=== PATIENT | male | born 1950 ===

== ENCOUNTER 2018-11-28 15:23 | Emergency (ER) | payer MEDICARE ==
[2018-11-28 16:16] VITALS: BP 124/62
--- NOTE | 2018-11-28 16:49 | ED ---
HPI Febrile Illness - HPI Summary HPI Summary: s/p prostate biopsy three days ago, now with no dysuria, fever began several hours ago . - History of Current Complaint Chief Complaint: UCGeneralIllness Time Seen by Provider: 11/28/18 16:26 Hx Obtained From: Patient Onset/Duration: Started Hours Ago Timing: Constant Initial Severity: Moderate Current Severity: Moderate Pain Intensity: 0 Aggravating Factors: Nothing Alleviating Factors: Nothing Associated Signs and Symptoms: Chills - prostate biopsy, Headache - Allergy/Home Medications Allergies/Adverse Reactions: Allergies Allergy/AdvReac Type Severity Reaction Status Date / Time No Known Allergies Allergy Verified 11/28/18 16:07 Home Medications: Home Medications Cod Liver Oil 1 cap PO DAILY 11/28/18 [History Confirmed 11/28/18] Multivitamin [Multivitamins] 1 cap PO DAILY 11/28/18 [History Confirmed 11/28/18 ] Tadalafil [Cialis] 10 mg PO DAILY PRN 11/28/18 [History Confirmed 11/28/18] PMH/Surg Hx/FS Hx/Imm Hx Previously Healthy: Yes - Surgical History Surgery Procedure, Year, and Place: prostate biopsy. L elbow surgery with metal plate 2009. R wrist and arm 2009 Infectious Disease History: No Infectious Disease History: Denies: Traveled Outside the [place] in Last 30 Days - Social History Alcohol Use: Weekly Substance Use Type: Reports: Marijuana Substance Use Comment - Amount & Last Used: occasionally Hx Tobacco Use: No Smoking Status (MU): Current Some Day Smoker Type: Cigars Review of Systems Positive: Fever, Chills ENT: Negative Cardiovascular: Negative Respiratory: Negative Gastrointestinal: Negative Positive: other - perineal pain Musculoskeletal: Negative Neurological: Negative Psychological: Normal All Other Systems Reviewed And Are Negative: Yes Physical Exam Triage Information Reviewed: Yes Vital Signs On Initial Exam: Initial Vitals Temp Pulse Resp BP Pulse Ox 38.9 C 101 18 124/62 95 11/28/18 16:05 11/28/18 16:05 11/28/18 16:05 11/28/18 16:05 11/28/18 16:05 Vital Signs Reviewed: Yes Appearance: Positive: Well-Appearing Skin: Positive: Warm Head/Face: Positive: Normal Head/Face Inspection Eyes: Positive: Normal ENT: Positive: Normal ENT inspection Respiratory/Lung Sounds: Positive: Clear to Auscultation Cardiovascular: Positive: Normal Abdomen Description: Positive: Nontender Bowel Sounds: Positive: Present Musculoskeletal: Positive: Normal Diagnostics - Vital Signs Vital Signs Temp Pulse Resp BP Pulse Ox 11/28/18 16:05 38.9 C 101 18 124/62 95 - Laboratory Lab Results: Lab Results 11/28/18 11/28/18 Range/Units 16:26 16:28 POC Urine Color Dark yellow POC Urine Clarity Clear POC Urine pH 6.0 (5-9) POC Ur Specif [place] >= 1.030 (1.010-1.030) POC Urine Protein Negative (Negative) POC Ur Glucose (UA) Negative (Negative) POC Urine Ketones Negative (Negative) POC Urine Blood 1+ A (Negative) POC Urine Nitrite Negative (Negative) POC Urine Bilirubin Negative (Negative) POC Urine Urobilinogen 0.2 (Negative) POC U Leukocyte Esteras Trace A (Negative) Influenza A (Rapid) Negative (Negative) Influenza B (Rapid) Negative (Negative) Lab Statement: Any lab studies that have been ordered have been reviewed, and results considered in the medical decision making process. Course/Dx - Diagnoses Provider Diagnoses: Sepsis Discharge - Sign-Out/Discharge Documenting (check all that apply): Patient Departure All imaging exams completed and their final reports reviewed: Yes - Discharge Plan Condition: Fair Disposition: HOME-RECOMMEND TO ED Referrals: No Primary Care Phys,NOPCP [Primary Care Provider] - - Billing Disposition and Condition Condition: FAIR Disposition: Home-Recommend to ED
== END 2018-11-28 17:03 | disposition home health service (06) ==
LOC: UCEAST 15:23
DX: A41.9 Sepsis, unspecified organism (principal); F17.210 Nicotine dependence, cigarettes, uncomplicated
CPT/HCPCS: 71046; 81003; 87086; 99202; G0463

== ENCOUNTER 2018-11-28 17:42 | Inpatient (IN) | payer MEDICARE, OTHER ==
[2018-11-28] MEDS ORDERED: NS 0.9% 1000 ML* 1,000 ML IV ONE (21:19)
[2018-11-28] MEDS ORDERED: Acetaminophen TAB* 325 MG PO ONE (21:58)
[2018-11-28 22:28] LABS: ABS Basophils 0 10^3/ul (0-0.2); ABS Eosinophils 0 10^3/ul (0-0.6); ABS Lymphocytes 0.9 10^3/ul (1.0-4.8); ABS Monocytes 0.9 10^3/ul (0-0.8); ABS Neutrophils 13.6 10^3/ul (1.5-7.7); ABS Nucleated RBC 0 10^3/ul; Eosinophil % 0.1 %; Hematocrit 43 % (42-52); Hemoglobin 14.7 g/dl (14.0-18.0); Lymphocyte % 5.5 %; Mean Corpuscular HGB Conc 34 g/dl (31-36); Mean Corpuscular Hemoglobin 30 pg (27-31); Mean Corpuscular Volume 88 fL (80-94); Nucleated Red Blood Cells % 0; Platelet Count 228 10^3/ul (150-450); Red Blood Count 4.91 10^6/ul (4.00-5.40); Red Cell Distribution Width 13 % (10.5-15); White Blood Count 15.4 10^3/ul (3.5-10.8)
[2018-11-28 22:36] LABS: Activated Partial Thrombo Time 28.3 seconds (26.0-36.3); INR 1.04 (0.77-1.02)
[2018-11-28 22:45] LABS: Albumin 4.1 g/dL (3.2-5.2); Albumin/Globulin Ratio 1.4 (1-3); BUN/Creatinine Ratio 13.8 (8-20); C Reactive Protein 92.88 mg/L (<8.01); Calcium 8.8 mg/dL (8.6-10.3); EGFR Non-African American 58.2 (>60); Potassium 3.7 mmol/L (3.5-5.0); Total Bilirubin 0.9 mg/dL (0.2-1.0); Total Protein 7.1 g/dL (6.4-8.9)
[2018-11-29] MEDS ORDERED: NS 0.9% 1000 ML* 1,000 ML IV ONE (00:06)
[2018-11-29] MEDS ORDERED: Piperacillin/Tazobac ADVAN(*) 3.375 GM in NS 0.9% 100 ML* 100 ML IVPB ONE ×2 (00:06→02:40)
[2018-11-29] MEDS ORDERED: Zosyn per Pharmacy* NOTE FOLLOW UP SCH (03:00)
--- NOTE | 2018-11-29 04:17 | ED ---
HPI Febrile Illness - HPI Summary HPI Summary: Patient with history of prostate biopsy 2 days ago in [place] complains of fever to 102, chills. Patient sent from urgent care to ED to rule out sepsis. Negative for influenza and negative chest x-ray at urgent care. Patient denies KELLEY, cough, sore throat, CP, SOB, N/V/D, abdominal pain, change in urine, change in BM. Medical history is none. Occasional EtOH, denies recreational drug use. No antipyretics taken today. - History of Current Complaint Chief Complaint: EDFever Time Seen by Provider: 11/28/18 21:15 Hx Obtained From: Patient Onset/Duration: Started Hours Ago Timing: Constant Initial Severity: Mild Current Severity: Mild Pain Intensity: 1 Pain Scale Used: 0-10 Numeric Associated Signs and Symptoms: Chills - Allergy/Home Medications Allergies/Adverse Reactions: Allergies Allergy/AdvReac Type Severity Reaction Status Date / Time coconut Allergy Swelling Verified 11/28/18 18:03 PMH/Surg Hx/FS Hx/Imm Hx Endocrine/Hematology History: Denies: Hx Anticoagulant Therapy History: Denies: Hx Dialysis Sensory History: Denies: Hx Eye Prosthesis EENT History: Denies: Hx Deafness Neurological History: Denies: Hx Developmental Delay Psychiatric History: Denies: Hx Autism - Surgical History Surgery Procedure, Year, and Place: prostate biopsy. L elbow surgery with metal plate 2009. R wrist and arm 2009 Infectious Disease History: No Infectious Disease History: Denies: Traveled Outside the US in Last 30 Days - Family History Known Family History: Positive: Unknown - Social History Alcohol Use: Weekly Substance Use Type: Reports: Marijuana Substance Use Comment - Amount & Last Used: occasionally Hx Tobacco Use: No Smoking Status (MU): Current Some Day Smoker Type: Cigars Review of Systems Positive: Fever Eyes: Negative ENT: Negative Cardiovascular: Negative Respiratory: Negative Gastrointestinal: Negative Genitourinary: Negative Musculoskeletal: Negative Skin: Negative Neurological: Negative Psychological: Normal All Other Systems Reviewed And Are Negative: Yes Physical Exam - Summary Physical Exam Summary: Physical exam unremarkable. Triage Information Reviewed: Yes Vital Signs On Initial Exam: Initial Vitals Temp Pulse Resp BP Pulse Ox 99.3 F 93 16 128/76 95 11/28/18 17:59 11/28/18 17:59 11/28/18 17:59 11/28/18 17:59 11/28/18 17:59 Vital Signs Reviewed: Yes Appearance: Positive: Well-Appearing Skin: Positive: Warm Head/Face: Positive: Normal Head/Face Inspection Eyes: Positive: Normal ENT: Positive: Normal ENT inspection Neck: Positive: Supple Respiratory/Lung Sounds: Positive: Clear to Auscultation Cardiovascular: Positive: Normal Abdomen Description: Positive: Nontender Musculoskeletal: Positive: Normal Neurological: Positive: Normal Psychiatric: Positive: Normal AVPU Assessment: Alert - Dilshad Coma Scale Best Eye Response: 4 - Spontaneous Best Motor Response: 6 - Obeys Commands Best Verbal Response: 5 - Oriented Coma Scale Total: 15 Diagnostics - Vital Signs Vital Signs Temp Pulse Resp BP Pulse Ox 11/29/18 02:07 27 139/78 11/29/18 02:00 19 11/29/18 01:38 24 146/77 11/29/18 01:08 112 22 170/88 97 11/29/18 01:00 108 16 97 11/29/18 00:38 96 15 137/77 97 11/29/18 00:07 98 22 155/78 96 11/29/18 00:00 87 17 94 11/28/18 23:37 97 21 124/70 93 11/28/18 23:14 101 26 94 11/28/18 23:08 104 26 134/76 94 11/28/18 23:00 109 21 94 11/28/18 22:57 100.2 F 11/28/18 22:37 118 25 177/84 95 11/28/18 22:07 105 26 147/79 96 11/28/18 22:00 19 11/28/18 21:49 102 140/72 94 11/28/18 21:48 102.9 F 11/28/18 21:37 101 132/64 94 11/28/18 21:17 94 11/28/18 21:07 102 136/73 97 11/28/18 21:06 104 98 11/28/18 20:10 98.4 F 87 139/75 99 11/28/18 17:59 99.3 F 93 16 128/76 95 - Laboratory Lab Results: Lab Results 11/28/18 11/28/18 11/28/18 Range/Units 22:06 22:06 22:06 WBC 15.4 H (3.5-10.8) 10^3/ul RBC 4.91 (4.00-5.40) 10^6/ul Hgb 14.7 (14.0-18.0) g/dl Hct 43 (42-52) % MCV 88 (80-94) fL MCH 30 (27-31) pg MCHC 34 (31-36) g/dl RDW 13 (10.5-15) % Plt Count 228 (150-450) 10^3/ul MPV 8.0 (7.4-10.4) fL Neut % (Auto) 88.1 % Lymph % (Auto) 5.5 % Glynn % (Auto) 6.1 % Eos % (Auto) 0.1 % Baso % (Auto) 0.2 % Absolute Neuts (auto) 13.6 H (1.5-7.7) 10^3/ul Absolute Lymphs (auto) 0.9 L (1.0-4.8) 10^3/ul Absolute Monos (auto) 0.9 H (0-0.8) 10^3/ul Absolute Eos (auto) 0 (0-0.6) 10^3/ul Absolute Basos (auto) 0 (0-0.2) 10^3/ul Absolute Nucleated RBC 0 10^3/ul Nucleated RBC % 0 INR (Anticoag Therapy) 1.04 H (0.77-1.02) APTT 28.3 (26.0-36.3) seconds Sodium 136 (135-145) mmol/L Potassium 3.7 (3.5-5.0) mmol/L Chloride 104 (101-111) mmol/L Carbon Dioxide 26 (22-32) mmol/L Anion Gap 6 (2-11) mmol/L BUN 17 (6-24) mg/dL Creatinine 1.23 H (0.67-1.17) mg/dL Est GFR ( Amer) 70.4 (>60) Est GFR (Non-Af Amer) 58.2 (>60) BUN/Creatinine Ratio 13.8 (8-20) Glucose 126 H (70-100) mg/dL Lactic Acid (0.5-2.0) mmol/L Calcium 8.8 (8.6-10.3) mg/dL Total Bilirubin 0.90 (0.2-1.0) mg/dL AST 11 L (13-39) U/L ALT 14 (7-52) U/L Alkaline Phosphatase 59 (34-104) U/L Troponin I 0.01 (<0.04) ng/mL C-Reactive Protein 92.88 H (<8.01) mg/L Total Protein 7.1 (6.4-8.9) g/dL Albumin 4.1 (3.2-5.2) g/dL Globulin 3.0 (2-4) g/dL Albumin/Globulin Ratio 1.4 (1-3) 11/28/18 11/29/18 Range/Units 22:06 01:10 WBC (3.5-10.8) 10^3/ul RBC (4.00-5.40) 10^6/ul Hgb (14.0-18.0) g/dl Hct (42-52) % MCV (80-94) fL MCH (27-31) pg MCHC (31-36) g/dl RDW (10.5-15) % Plt Count (150-450) 10^3/ul MPV (7.4-10.4) fL Neut % (Auto) % Lymph % (Auto) % Glynn % (Auto) % Eos % (Auto) % Baso % (Auto) % Absolute Neuts (auto) (1.5-7.7) 10^3/ul Absolute Lymphs (auto) (1.0-4.8) 10^3/ul Absolute Monos (auto) (0-0.8) 10^3/ul Absolute Eos (auto) (0-0.6) 10^3/ul Absolute Basos (auto) (0-0.2) 10^3/ul Absolute Nucleated RBC 10^3/ul Nucleated RBC % INR (Anticoag Therapy) (0.77-1.02) APTT (26.0-36.3) seconds Sodium (135-145) mmol/L Potassium (3.5-5.0) mmol/L Chloride (101-111) mmol/L Carbon Dioxide (22-32) mmol/L Anion Gap (2-11) mmol/L BUN (6-24) mg/dL Creatinine (0.67-1.17) mg/dL Est GFR ( Amer) (>60) Est GFR (Non-Af Amer) (>60) BUN/Creatinine Ratio (8-20) Glucose (70-100) mg/dL Lactic Acid 1.1 1.7 (0.5-2.0) mmol/L Calcium (8.6-10.3) mg/dL Total Bilirubin (0.2-1.0) mg/dL AST (13-39) U/L ALT (7-52) U/L Alkaline Phosphatase (34-104) U/L Troponin I (<0.04) ng/mL C-Reactive Protein (<8.01) mg/L Total Protein (6.4-8.9) g/dL Albumin (3.2-5.2) g/dL Globulin (2-4) g/dL Albumin/Globulin Ratio (1-3) Result Diagrams: 11/28/18 22:06 11/28/18 22:06 Lab Statement: Any lab studies that have been ordered have been reviewed, and results considered in the medical decision making process. Course/Dx - Course Course Of Treatment: Patient with history of prostate biopsy 2 days ago in [place] complains of fever to 102, chills. Patient sent from urgent care to ED to rule out sepsis. Negative for influenza and negative chest x-ray at urgent care. Patient denies KELLEY, cough, sore throat, CP, SOB, N/V/D, abdominal pain, change in urine, change in BM. Medical history is none. Occasional EtOH , denies recreational drug use. No antipyretics taken today. CRP 92.8. Lactic normal. Admitted to hospitalists for sepsis. Started on Zosyn. Physical exam unremarkable. Patient febrile, tachycardic. WBC 15.4. - Diagnoses Provider Diagnoses: Sepsis Discharge - Sign-Out/Discharge Documenting (check all that apply): Patient Departure - Discharge Plan Condition: Stable Disposition: ADMITTED TO [facility] - Billing Disposition and Condition Condition: STABLE Disposition: Admitted to [facility]
[2018-11-29] MEDS: ZOSYN 3.375 GM Q8H per EXTENDED INFUSION IVPB SCH ×6 (05:34→21:46)
[2018-11-29] MEDS: NS 0.9% 1000 ML* 1,000 ML IV SCH ×3 (05:34→20:54)
[2018-11-29 05:45] LABS: Urine Appearance Cloudy; Urine Bacteria Absent (Absent); Urine Bilirubin Negative (Negative); Urine Blood 3+ (Negative); Urine Color Yellow; Urine Glucose Negative (Negative); Urine Ketones Negative (Negative); Urine Nitrite Negative (Negative); Urine Protein 1+(30 mg/dL) (Negative); Urine Red Blood Cell 3+(>10/hpf) (Absent); Urine Specific Gravity 1.023 (1.010-1.030); Urine Urobilinogen Negative (Negative); Urine White Blood Cell 3+(>20/hpf) (Absent)
[2018-11-29] MEDS: Heparin VIAL(*) 5000 UNITS/ML VIAL (FIVE THOUSAND) SUBCUT SCH ×3 (05:55→21:46)
[2018-11-29 06:06] LABS: ABS Basophils 0 10^3/ul (0-0.2); ABS Eosinophils 0 10^3/ul (0-0.6); ABS Lymphocytes 0.6 10^3/ul (1.0-4.8); ABS Monocytes 0.6 10^3/ul (0-0.8); ABS Neutrophils 12.1 10^3/ul (1.5-7.7); ABS Nucleated RBC 0 10^3/ul; Eosinophil % 0.1 %; Hematocrit 43 % (42-52); Hemoglobin 14.7 g/dl (14.0-18.0); Lymphocyte % 4.3 %; Mean Corpuscular HGB Conc 34 g/dl (31-36); Mean Corpuscular Hemoglobin 30 pg (27-31); Mean Corpuscular Volume 88 fL (80-94); Mean Platelet Volume 8.2 fL (7.4-10.4); Nucleated Red Blood Cells % 0; Platelet Count 209 10^3/ul (150-450); Red Blood Count 4.91 10^6/ul (4.00-5.40); Red Cell Distribution Width 13 % (10.5-15); White Blood Count 13.3 10^3/ul (3.5-10.8)
[2018-11-29 06:23] LABS: BUN/Creatinine Ratio 12.7 (8-20); C Reactive Protein 157.38 mg/L (<8.01); Calcium 8.8 mg/dL (8.6-10.3); Potassium 3.7 mmol/L (3.5-5.0)
[2018-11-29] MEDS: Acetaminophen TAB* 325 MG PO PRN ×4 (07:35→23:06)
[2018-11-29] MEDS: Multivitamins/Minerals TAB PO SCH (07:35)
--- NOTE | 2018-11-29 08:21 | HP ---
CC: Dr. Carlos Ortiz at [facility] in [place], [place], phone #[phone] HISTORY AND PHYSICAL: DATE OF ADMISSION: 11/29/18 UROLOGIST: Dr. Carlos Ortiz. TIME OF EVALUATION: 2:30 a.m. CHIEF COMPLAINT: Fever and chills. HISTORY OF PRESENT ILLNESS: Mr. Ayala is a 68-year-old male with a past medical history of BPH and hy perlipidemia who presented to the emergency room with complaints of fever and chills. He states he was in his state of health and on 11/26/18, he had a transrectal prostate biopsy perform ed in [place]. He was discharged home and traveled to [place] where he came to help a friend and e ventually they both traveled to [place]. He states that he went with his friend to an appointment and while there he started to feel poorly, felt cold, had shaking chills, and when they measured his tem perature, it was 102. He was sent to [facility] and he had a urinalysis done that showed 1+ blo od and trace LE, and he was referred to the emergency room for further evaluation. The patient denies abdominal pain. He states that he had some hematuria and also passed some blood p er rectum, but he was aware that this was possible with the procedure he had done. In the emergency room, he was found to be febrile, tachycardic, and the hospitalist service was consu lted for further evaluation. The patient has not seen a primary care doctor for more than 5 years. PAST MEDICAL HISTORY: 1. BPH. 2. Hyperlipidemia. PAST SURGICAL HISTORY: Status post prostate biopsy on 11/26/18. MEDICATIONS LIST: 1. Cod Liver Oil 1 capsule p.o. daily. 2. Multivitamin 1 capsule p.o. daily. 3. Tadalafil 10 mg p.o. daily as needed for erectile dysfunction. ALLERGIES: To coconut. FAMILY HISTORY: Mother of throat cancer, she was not a smoker. His father of intra-abdomi nal aneurysm and he had a history of hypertension and was also a smoker. SOCIAL HISTORY: The patient states that he smokes a cigar sporadically, 3 or 4 a year. He drinks 6 drinks a week, usually a glass of wine or beer. He states that he tried marijuana, but does not use any drugs regularly. Surrogate decision maker is his friend, Jesenia Griffin, phone number is [phone]. REVIEW OF SYSTEMS: A 14-point review of systems was performed and all the pertinent negative and pos itive findings are in the HPI. PHYSICAL EXAMINATION GENERAL: The patient is a pleasant gentleman lying in the ED stretcher, in no acute distress. VITAL SIGNS: Temperature 100.2, heart rate is 104, respiratory rate is 21, oxygen saturation is 94% on room air, blood pressure is 134/76. HEENT: Pupils are equal. Moist mucous membranes. CHEST: Breath sounds present bilaterally with no added sounds. CVS: Normal S1, S2. Regular rate and rhythm. ABDOMEN: Soft, nontender, nondistended. Bowel sounds are present. EXTREMITIES: No edema. NEUROLOGIC: He is alert and oriented x3. Able to move all 4 extremities. LABORATORY AND IMAGING DATA: The patient had a CBC that showed a WBC of 15.4, hemoglobin of 14.7, h ematocrit of 43, platelets of 228,000 with 88% neutrophils. INR is 1.04. Chemistry showed a sodium o f 136, potassium of 3.7, chloride of 104, bicarb 26, BUN of 17, creatinine of 1.2, glucose of 126. L actic acid was 1.1 and repeat was 1.7. Calcium is 8.8. LFTs are normal. CRP is 92.88. Urinalysis done at [facility] showed 1+ blood and trace LE. Influenza rapid test was negative. EKG done on 11/28/18 at 9:30 p.m. shows sinus tachycardia at 102 beats per minute with no ST-T aaron es. No prior EKG to compare. ASSESSMENT AND PLAN: Mr. Ayala is a 68-year-old male with a past medical history of benign prostatic hyperplasia, hyperlipidemia who underwent a transrectal prostate biopsy 3 days ago, presented to the emergency room with complaints of fever and shaking chills, found to be septic. 1. Sepsis. The patient meets sepsis criteria with fever, tachypnea, tachycardia and leukocytosis. qSOFA is 1 (tachypnea). Source is likely prostatitis associated with his recent transrectal prostate biopsy. The patient will be admitted to the telemetry floor. We are going to continue his IV hydration. He already received his 30 mL/kg bolus in the emergency room. Serial lactic acids have been normal and I will continue Zosyn already started in the emergency room as we wait for his blood and urine culture results. The way he describes his fever and shaking chills is very suggestive of gram- negative bacteremia. We will also request records from his procedure done in [place]. 2. Acute kidney injury. The patient states that his creatinine on the day of the procedure was 1 an d now is slightly elevated at 1.2. I suspect this is likely prerenal in the setting of infection and the patient will be continued on IV fluids and we will monitor his renal function. If he continues to have fever and does not show significant improvement clinically and also his renal function, he ma y need some urinary tract imaging. 3. DVT prophylaxis. The patient has a score of 2 on the DVT Prophylaxis Risk Assessment Guide and h e will be started on subcutaneous heparin. 4. Code status is full. TIME SPENT: Approximately 45 minutes were spent with patient interview, medical records review, phys ical examination to complete this admission, more than half of this time was spent [id number] with the patient in coordination of care. [id number]/[facility] #: [id number]
[2018-11-29] MEDS ORDERED: Ibuprofen TAB* 600 MG PO PRN (12:42)
--- NOTE | 2018-11-29 15:34 | PN ---
Subjective Date of Service: 11/29/18 Interval History: Mr. Ayala is feeling poor this morning. He c/o malaise and dizziness. Does not feel any better than when he came into the ED. He denies CP, SOB, N/V. Reports some hematuria. Anxious to be d/c'd as [place] of [place], but agreeable to staying until symptoms are improved and culture results are available. Family History: Unchanged from Admission Social History: Unchanged from Admission Past Medical History: Unchanged from Admission Objective Active Medications: Acetaminophen (Tylenol Tab*) 650 mg PO Q6H PRN pain/fever Heparin Sodium (Porcine) (Heparin Vial(*)) 5,000 units SUBCUT Q8HR MORTEZA Sodium Chloride (Ns 0.9% 1000 Ml*) 1,000 mls @ 150 mls/hr IV PER RATE MORTEZA Piperacillin Sod/Tazobactam (Sod 3.375 gm/ Sodium Chloride) 100 mls @ 25 mls/ hr IVPB Q8H MORTEZA Ibuprofen (Motrin Tab*) 600 mg PO Q6H PRN PAIN OR TEMPERATURE Multivitamins/Minerals (Theragran/Minerals Tab*) 1 tab PO DAILY MORTEZA Vital Signs - 8 hr 11/29/18 11/29/18 11/29/18 07:30 08:00 08:49 Temperature 99.9 F 98.7 F Pulse Rate 103 Respiratory 16 18 Rate Blood Pressure 122/61 (mmHg) O2 Sat by Pulse 94 94 Oximetry 11/29/18 11/29/18 11:14 12:35 Temperature 98.3 F 100.4 F Pulse Rate 89 Respiratory 18 Rate Blood Pressure 130/63 (mmHg) O2 Sat by Pulse 100 Oximetry Oxygen Devices in Use Now: None Appearance: Elderly male sitting in bed in NAD Eyes: No Scleral Icterus Ears/Nose/Mouth/Throat: Mucous Membranes Moist Neck: NL Appearance and Movements; NL JVP, Trachea Midline Respiratory: Symmetrical Chest Expansion and Respiratory Effort, Clear to Auscultation Cardiovascular: NL Sounds; No Murmurs; No JVD, RRR Abdominal: NL Sounds; No Tenderness; No Distention Extremities: No Edema Skin: No Rash or Ulcers Neurological: Alert and Oriented x 3 Lines/Tubes/Other Access: Clean, Dry and Intact Peripheral IV Nutrition: Taking PO's Result Diagrams: 11/29/18 05:32 11/29/18 05:32 Assess/Plan/Problems-Billing Assessment: Mr. Ayala is a 68 yo M with PMH of BPH and HLD who underwent a transrectal prostate biopsy on 11/26/18 (not at this facility) then presented to the ED with fever and chills and was found to have sepsis, likely secondary to prostatitis. - Patient Problems (1) Sepsis Comment: - Met sepsis criteria on admission with tachycardia, tachypnea, fever, and leukocytosis; met qSOFA criteria with tachypnea - Likely secondary to acute prostatitis given recent biopsy - Received appropriate fluid bolus in the ED - Awaiting blood culture results - Continue Zosyn, acetaminophen (2) Acute prostatitis Code(s): N41.0 - ACUTE PROSTATITIS Comment: - Likely diagnosis based on recent prostate biopsy, though does not display typical urinary symptoms - Awaiting urine culture results - Continue Zosyn (3) SARA (acute kidney injury) Code(s): N17.9 - ACUTE KIDNEY FAILURE, UNSPECIFIED Comment: - Creatinine 1.23 on admission; baseline around 1 - Continue IVF (4) BPH (benign prostatic hyperplasia) Code(s): N40.0 - BENIGN PROSTATIC HYPERPLASIA WITHOUT LOWER URINRY TRACT SYMP Comment: - Not currently on any medication (5) DVT prophylaxis Comment: - Heparin SQ (6) Full code status Code(s): Z78.9 - OTHER SPECIFIED HEALTH STATUS Comment: Status and Disposition: Inpatient for IV antibiotics and pending urine culture and blood cultures. Anticipate d/c home when medically stable. Attending: Tuan Monroe
[2018-11-30] MEDS: NS 0.9% 1000 ML* 1,000 ML IV SCH ×2 (04:13→10:34)
[2018-11-30] MEDS: Heparin VIAL(*) 5000 UNITS/ML VIAL (FIVE THOUSAND) SUBCUT SCH (05:11)
[2018-11-30] MEDS: ZOSYN 3.375 GM Q8H per EXTENDED INFUSION IVPB SCH ×2 (05:11)
[2018-11-30] MEDS: Multivitamins/Minerals TAB PO SCH (09:33)
[2018-11-30 11:43] VITALS: BP 144/64
--- NOTE | 2018-11-30 22:53 | DS ---
AMENDED REPORT NOW INCLUDES DESIGNATED COSIGNER DISCHARGE SUMMARY: DATE OF ADMISSION: 11/29/18 DATE OF DISCHARGE: 11/30/18 PRIMARY CARE PROVIDER: None. UROLOGIST: Dr. Carlos Ortiz, [facility] [place], [place]. ATTENDING PHYSICIAN: Dr. Monroe * (dictated by Bee Clark NP) PRIMARY DIAGNOSES: 1. Sepsis secondary to acute prostatitis versus community-acquired pneumonia. 2. Acute kidney injury. SECONDARY DIAGNOSES: 1. BPH. 2. Hyperlipidemia. STUDIES WHILE IN THE HOSPITAL: 1. EKG on 11/28/18 shows sinus tachycardia with a rate of 102, QTc 438. No ischemic changes. 2. Chest x-ray on 11/30/18 reads as developing right upper lobe consolidation. HISTORY OF PRESENT ILLNESS AND HOSPITAL COURSE: Mr. Ayala is a 68-year-old male with past medical history of BPH and hyperlipidemia and recent prostate biopsy, who presented to the emergency room on 11/28/18 with complaints of fever and chills. Please see the history and physical by Dr. Kraft for complete summary of the events leading up this hospitalization. In short, the patient underwent a transrectal prostate biopsy on 11/26/18 in [place], where he resides. The procedure was uneventful. He ultimately travelled to [place] to see a friend and started developing chills, malaise, and fever up to 102 degrees Fahrenheit. He presented to the emergency room for further evaluation. In the emergency room, he was noted to meet sepsis criteria with fever, tachycardia, tachypnea, and leukocytosis. Source of infection was suspected to be acute prostatitis due to recent prostate biopsy. White blood count was 15.4 and CRP was 92. He was also noted to have acute kidney injury with a creatinine of 1.23. The patient reports that his baseline creatinine is 1. He had a urinalysis, which showed cloudy urine remarkable for 2+ leukocyte esterase, 3+ wbc's, 3+ rbc's, though no bacteria. Because of the concern for sepsis, he was admitted by the hospitalist service. The patient was placed on Zosyn. He was given appropriate IV fluids bolus for his sepsis and was continued on IV fluids for his acute kidney injury. On the day of admission, he did have a fever of 100.4 around noon and had chills at that time. Today, the patient reports feeling well. His vital signs have normalized and he is no longer tachycardic or tachypneic. He is afebrile. His white blood count has decreased to 13.3. He no longer has malaise, but does report some fatigue. He denies any urinary symptoms including dysuria, frequency, or feelings of incomplete emptying. He does report occasional pink- tinged urine, which he was told to expect after his biopsy. The patient had blood cultures which showed no growth. He additionally had a urine culture which showed no growth. Because of this, a chest x-ray was done to rule out pneumonia as a possible source of infection. The chest x-ray was also as noted above, though it appears that there may be some right upper lobe consolidation. This is still considered community-acquired as the patient has not been in the hospital for greater than 48 hours at the time of this chest x-ray. At this point, it is unclear if the cause of his sepsis was prostatitis or a developing pneumonia, though his symptoms have improved on Zosyn. He is anxious to be discharged as he would like to return home to [place]. The patient is saturating well on room air and has no respiratory complaints. Mr. Ayala is stable for discharge today. Vital signs are as follows: Temp 99.0 , heart rate 85, respiratory rate 18, oxygen saturation 95% on room air, blood pressure 144/64. DISCHARGE MEDICATIONS: New Medications: 1. Levofloxacin 500 mg p.o. daily x12 days. Continued Medications: 1. Cod liver oil 1 cap p.o. daily. 2. Multivitamin 1 tab p.o. daily. 3. Tadalafil 10 mg p.o. daily p.r.n. erectile dysfunction. DISCHARGE PLAN: Mr. Ayala will be discharged home. Activity will be as tolerated. Diet will be regular as tolerated. Medications are noted above. The patient has been prescribed a 12-day course of Levaquin to complete a total of 14 days of antibiotic therapy, which would be necessary for acute prostatitis. Again, it is unclear whether the sepsis was caused by acute prostatitis or community-acquired pneumonia, though the Levaquin would be sufficient to cover both. He reports that he has not seen a primary care physician in quite a number of years, but he does follow with his urologist who did the biopsy. I have advised him to followup with his urologist prior to finishing his course of his antibiotics to ensure that his infection has resolved. The patient has been instructed to return to the emergency room or nearest hospital for any worsening symptoms, shortness breath, lightheadedness, dizziness, chest discomfort, high fevers, chills, night sweats, loss of consciousness, or any other worrisome signs or symptoms. This is a summarized report of a complex medical history and hospital stay. For further details, please see the entire medical record. TIME SPENT: Approximately 35 minutes were spent on this discharge. BEE CLARK NP [id number]/[facility] #: [id number] JAIME
== END 2018-11-30 14:11 | disposition home or self-care (01) | DRG 871 ==
LOC: ED 17:42 → MEDTELE 11-29 02:26
PROVIDERS: ADMIT Internal Medicine; ATTEND Internal Medicine
DX: A41.9 Sepsis, unspecified organism (principal); J18.9 Pneumonia, unspecified organism; N17.9 Acute kidney failure, unspecified; N41.9 Inflammatory disease of prostate, unspecified; N40.0 Benign prostatic hyperplasia without lower urinary tract symptoms; E78.5 Hyperlipidemia, unspecified; Z79.899 Other long term (current) drug therapy; N52.9 Male erectile dysfunction, unspecified; Z91.018 Allergy to other foods; Z80.0 Family history of malignant neoplasm of digestive organs; Z82.49 Family history of ischemic heart disease and other diseases of the circulatory system; Z81.2 Family history of tobacco abuse and dependence; Z72.0 Tobacco use
CPT/HCPCS: 36415; 71046; 80048; 80053; 81003; 81015; 83605; 84484; 85025; 85610; 85730; 86140; 87040; 87086; 93005; 96361; 96372; 96374; 99284; A9270-GY; J1644; J2543